=== PATIENT | female | born 1965 | race Caucasian/White ===

== ENCOUNTER → 2020-09-03 13:10 | Outpatient (CLI) | payer OTHER, SELFPAY ==
--- NOTE | ~2020-09-03 | MM_ITS ---
EXAMINATION: MM screening [facility] BI w beatriz HISTORY: Screening mammogram TECHNIQUE: Craniocaudal and mediolateral oblique 3-D tomosynthesis images were obtained and synthetic 2-D images were generated. CAD analysis was submitted and interpreted. COMPARISON: 09/08/2017, 01/27/2016, 09/23/2014 BREAST PARENCHYMAL COMPOSITION: The breasts are extremely dense, which lowers the sensitivity of mamm ography. FINDINGS: There is no evidence of suspicious mass, calcification, or architectural distortion to sugg est malignancy in either breast. There has been no suspicious interval change. IMPRESSION: 1. No mammographic evidence of malignancy. 2. Recommend routine screening mammography in one year. BI-RADS Category 1: Negative Reviewed, dictated and finalized at location A.
== END ==
PROVIDERS: PCP Internal Medicine
DX: Z12.31 Encounter for screening mammogram for malignant neoplasm of breast (principal)
CPT/HCPCS: 77063; 77067

== ENCOUNTER 2020-09-24 13:48 | Outpatient (CLI) | payer OTHER, SELFPAY ==
--- NOTE | ~2020-09-24 | DEXA_ITS ---
Bone Density Report Name: Saranya Chicas Age: 55 Sex: Female Ethnicity: White Date of : 1965 Indication: osteopenia; parental hip fracture; prior fracture; postmenopausal Referring Provider: Melvin Batres Study: Bone densitometry was performed. Exam Date: September 24, 2020 Accession number: [id number] Bone Density: Region BMD T-score Z-score Classification AP Spine (L1-L4) 0.924 -1.1 0.0 Osteopenia Femoral Neck (Left) 0.587 -2.4 -1.3 Osteopenia Total Hip (Left) 0.771 -1.4 -0.7 Osteopenia Total Hip Bilateral Avg 0.792 -1.3 -0.5 Osteopenia Femoral Neck (Right) 0.669 -1.6 -0.5 Osteopenia Total Hip (Right) 0.811 -1.1 -0.3 Osteopenia World Health Organization criteria for BMD impression classify patients as: Normal (T-score at or above -1.0), Osteopenia (T-score between -1.0 and -2.5), or Osteoporosis (T-score at or below -2.5). 10-year Fracture Risk: FRAX not reported because: Prior hip or vertebral fracture Previous Exams: Region Exam Age BMD T-score BMD Change BMD Change Date g/cm2 vs Baseline vs Previous AP Spine(L1-L4) 09/24/2020 55 0.924 -1.1 0.023(2.5%)* 0.023(2.5%)* 03/21/2018 52 0.902 -1.3 Total Hip(Left) 09/24/2020 55 0.771 -1.4 0.019(2.6%) 0.019(2.6%) 03/21/2018 52 0.751 -1.6 Total Hip(Right) 09/24/2020 55 0.811 -1.1 0.001(0.1%) 0.001(0.1%) 03/21/2018 52 0.810 -1.1 *Denotes significance at 95% confidence level, LSC for AP Spine = 0.022 g/cm2, LSC for Total Hip = 0.027 g/cm2 Clinical Information Provided by Patient: Have had a previous hip or vertebral fracture Has had a low trauma fracture Parent has had a hip fracture Has used the following medications: Vitamin D, BIDENCAL HORMONES Patient maximum height was 67 Menopause Age: 50 No regular weight bearing exercise Onset of menses at age 13 Number of children 3 Impression: The patient has low bone mass, based on the Left Femoral Neck T-score. The patient has risk factors, including: parental hip fracture, previous fracture. No significant bone loss was observed. Discussion: INCREASED RISK OF FRACTURE DUE TO HISTORY OF FRACTURE. The patient's previous fracture puts the patient at high risk of a future fracture. In untreated patients, the risk of osteoporotic fracture increases approximately two-fold for each 1.0 SD decrease in T-score. Low bone density is not the only risk factor for fracture; also consider factors such as patient's age, frailty or poor
== END 2020-09-24 13:49 | disposition home or self-care (01) ==
LOC: ANHIMG 13:50
PROVIDERS: PCP Internal Medicine; Visit Provider Internal Medicine
DX: M85.88 Other specified disorders of bone density and structure, other site (principal); M85.852 Other specified disorders of bone density and structure, left thigh; M85.851 Other specified disorders of bone density and structure, right thigh
CPT/HCPCS: 77080

== ENCOUNTER → 2022-03-03 14:15 | Outpatient (CLI) | payer OTHER, SELFPAY ==
--- NOTE | ~2022-03-03 | MM_ITS ---
EXAMINATION: MM screening [facility] BI w beatriz HISTORY: Screening TECHNIQUE: Craniocaudal and mediolateral oblique 3-D tomosynthesis images were obtained and synthetic 2-D images were generated. CAD analysis was submitted and interpreted. COMPARISON: Comparison to multiple prior studies sequentially, with oldest reviewed study dated 02/2012. BREAST PARENCHYMAL COMPOSITION: The breasts are extremely dense, which lowers the sensitivity of mamm ography FINDINGS: There is no evidence of suspicious mass, calcification, or architectural distortion to sugg est malignancy in either breast. There has been no suspicious interval change. IMPRESSION: 1. No mammographic evidence of malignancy. 2. Recommend routine screening mammography in one year. BI-RADS Category 1: Negative Reviewed, dictated and finalized at location A. ORK DEVELOPER
== END ==
PROVIDERS: PCP Internal Medicine; Visit Provider Obstetrics & Gynecology
DX: Z12.31 Encounter for screening mammogram for malignant neoplasm of breast (principal)
CPT/HCPCS: 77063; 77067

== ENCOUNTER 2022-11-11 08:30 | Outpatient (CLI) | payer SELFPAY ==
[2022-11-11 09:04] LABS: Kit Draw Collected
== END 2022-11-11 08:31 | disposition home or self-care (01) ==
PROVIDERS: PCP Internal Medicine
DX: K58.2 Mixed irritable bowel syndrome (principal); A04.9 Bacterial intestinal infection, unspecified; R53.83 Other fatigue
CPT/HCPCS: 36415

== ENCOUNTER → 2023-03-23 14:42 | Outpatient (CLI) | payer OTHER, SELFPAY ==
--- NOTE | ~2023-03-23 | MM_ITS ---
EXAMINATION: MM screening [facility] BI w beatriz HISTORY: Screening TECHNIQUE: Craniocaudal and mediolateral oblique 3-D tomosynthesis images were obtained and synthetic 2-D images were generated. CAD analysis was submitted and interpreted. COMPARISON: Comparison to multiple prior studies sequentially, with oldest reviewed study dated 06/14. BREAST PARENCHYMAL COMPOSITION: Dense: The breasts are extremely dense, which lowers the sensitivity of mammography. FINDINGS: There is focal asymmetry with possible architectural distortion in the upper central aspect of the right breast. The left breast is stable without evidence for malignancy. IMPRESSION: 1. Focal asymmetry in the upper central aspect of the right breast. 2. Additional mammographic views and possible breast ultrasound are recommended. BI-RADS Category 0: Incomplete: Needs additional imaging evaluation. Reviewed, dictated and finalized at location A. RPRISE ACCOUNT EXECUTIVE IMPRESSION: 1. Focal asymmetry in the upper central aspect of the right breast. 2. Additional mammographic views and possible breast ultrasound are recommended . BI-RADS Category 0: Incomplete: Needs additional imaging evaluation.
== END ==
PROVIDERS: PCP Obstetrics & Gynecology; Visit Provider Obstetrics & Gynecology
DX: Z12.31 Encounter for screening mammogram for malignant neoplasm of breast (principal); R92.8 Other abnormal and inconclusive findings on diagnostic imaging of breast
CPT/HCPCS: 77063; 77067

== ENCOUNTER → 2023-04-19 08:44 | Outpatient (CLI) | payer OTHER, SELFPAY ==
--- NOTE | ~2023-04-19 | MMUS_ITS ---
EXAMINATION: MM diagnostic [facility] RT w beatriz, US breast RT limited HISTORY: Follow-up right breast asymmetry TECHNIQUE: Additional 3-D tomosynthesis images of the right breast were performed and synthetic 2-D i mages were generated. CAD analysis was submitted and interpreted. High resolution Limited right breas t ultrasound was performed. COMPARISON: Comparison to multiple prior studies sequentially, with oldest reviewed study dated 05/2014. BREAST PARENCHYMAL COMPOSITION: Dense: The breasts are extremely dense, which lowers the sensitivity of mammography. FINDINGS: MAMMOGRAPHIC FINDINGS: There is subtle architectural distortion in the upper outer quadrant of the right breast, middle thir d. There is an irregular shaped spiculated mass in the upper outer quadrant of the right breast near the axilla posteriorly. ULTRASOUND: Limited right breast ultrasound: At 11:00, 5 cm from the nipple there is an irregular shaped antipara llel hypoechoic mass with mixed posterior attenuation measuring 4 x 3 x 3 mm without internal vascula rity. This corresponds to the area of architectural distortion by mammography. In the axilla there is an irregular shaped hypoechoic mass with mixed posterior attenuation measuring 12 x 7 x 9 mm. There is marginal vascularity. IMPRESSION: 1. Abnormal right breast masses located at 11:00, 5 cm from the nipple and in the right axilla. 2. Ultrasound-guided right breast biopsies recommended. BI-RADS category 5: Highly suspicious abnormality. Reviewed, dictated and finalized at location A. ESS EQUIPMENT OPERATOR IMPRESSION: 1. Abnormal right breast masses located at 11:00, 5 cm from the nipple and in t he right axilla. 2. Ultrasound-guided right breast biopsies recommended. BI-RADS category 5: Highly suspicious abnormality.
== END ==
PROVIDERS: PCP Obstetrics & Gynecology; Visit Provider Obstetrics & Gynecology
DX: N64.89 Other specified disorders of breast (principal); R92.8 Other abnormal and inconclusive findings on diagnostic imaging of breast
CPT/HCPCS: 76642; 77061; 77065; G0279

== ENCOUNTER 2024-08-12 08:43 | Day surgery (SDC) | payer OTHER, SELFPAY ==
[2024-08-12 09:30] VITALS: BMI 18.7
[2024-08-12 09:34] VITALS: BP 116/76; PULSE 78; RESP 16; TEMP 36.7; O2SAT 100
--- NOTE | 2024-08-12 09:41 | WPDANESEPP ---
Anes - Eval Pre Procedure Procedure: Operation Date: 08/12/24 10:30 Proposed Procedures p Screening Colonoscopy - Barney Jarrell DO s Internal Hemorrhoid Banding - Barney Jarrell DO Date/Time: 08/12/24 09:41 Preop Diagnosis: COLON SCREENING Pre Op Diagnosis: Neoplasm Screening, Grade 3 Internal Hemorrhoids Patient Data Age: 59 Gender: F Height: 1.68 m Weight: 52.6 kg Last Vital Signs Temp 98.1 F 08/12/24 09:34 Pulse 78 08/12/24 09:34 Resp 16 08/12/24 09:34 BP 116/76 08/12/24 09:34 Pulse Ox 100 08/12/24 09:34 O2 Del Method Room Air 08/12/24 09:34 Allergies Allergy/AdvReac Type Severity Reaction Status Date / Time terbinafine Allergy Mild Hives Verified 07/31/24 08:14 Home Medications ?Medication ?Instructions ?Recorded ?Confirmed ?Type ibuprofen 200 mg tablet 200 mg PO Q6H PRN pain 08/01/19 08/12/24 History omega 3-lvu-gij-fish oil 60 mg-90 1 cap PO DAILY 08/01/19 08/12/24 History mg-500 mg capsule anastrozole 1 mg tablet 1 mg PO DIRECTED 12/13/23 08/12/24 History biotin 1 mg capsule 1 mg PO DAILY 12/13/23 08/12/24 History calcium carbonate 500 mg PO DAILY 12/13/23 08/12/24 History cholecalciferol (vitamin D3) 75 75 mcg PO DAILY 05/31/24 08/12/24 History mcg (3,000 unit) tablet curcumin-phosphatidylcholine 500 400 mg PO DAILY 05/31/24 08/12/24 History mg capsule cyanocobalamin (vitamin B-12) 1,000 mcg PO DAILY 05/31/24 08/12/24 History 1,000 mcg capsule magnesium 200 mg tablet 200 mg PO DAILY 05/31/24 08/12/24 History Patient hx anesthesia problems: none Family hx anesthesia problems: none Results Review: All pre-operative results and documents have been reviewed as part of the pre-operative evaluation. 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 Hyperlipidemia Surgical History Surgical History (Updated 05/31/24 @ 10:19 by Prema Ngo MA) H/O mastectomy 2023 Hx of section 1989 H/O breast biopsy 05/24/2023 - pathology - right sided breast cancer H/O LEEP 2011 Family History Family History (Updated 05/31/24 @ 10:22 by Prema Ngo MA) Mother Family history of elevated blood lipids Family history of hypercholesterolemia Hypertension Heart disease Depression Sibling Family history of elevated blood lipids Family history of alcoholism Family history of hypercholesterolemia Hypertension Depression Father Hypertension Family history of arthritis Family history of malignant neoplasm Heart disease Sibling Osteoarthritis Grandparent Heart disease Family history of alcoholism Depression Social History Social History (Updated 05/31/24 @ 10:23 by Prema Ngo MA) Smoking status: Never smoker Second hand tobacco smoke exposure: No Alcohol intake: former Drinks per week: 1 Alcohol use details: very rarely, maybe one per month Substance use: never Substance use type: does not use Do You Feel Safe in your Home?: Yes Lack of Transportation: No Lack of Food: Never True Current Housing: I Have Housing Concerned About Future Housing: No Difficulty Paying Gas/Electric Bills: No Difficulty Paying for Meds: No Currently Unemployed: No Education: Master's Degree or Higher Difficulty w/ Childcare or Family Care: No Living arrangements: with family Occupation/Education: occupation Gender identity (if verbalized by the patient): Female Sexual Orientation (if Verbalized by the Patient): Straight or Heterosexual Agree to blood products: Yes Exam Day of Procedure 08/12/24 09:41 Heart: regular rate and rhythm Lungs: clear to auscultation Airway: Mallampati scale class 1 Neurological: alert and oriented
--- NOTE | 2024-08-12 09:42 | WPDANESEPP ---
Anes - Eval Pre Procedure Procedure: Operation Date: 08/12/24 10:30 Proposed Procedures p Screening Colonoscopy - Barney Jarrell DO s Internal Hemorrhoid Banding - Barney Jarrell DO Date/Time: 08/12/24 09:42 Pre Op Diagnosis: Neoplasm Screening, Grade 3 Internal Hemorrhoids Patient Data Age: 59 Gender: F Height: 1.68 m Weight: 52.6 kg Last Vital Signs Temp 98.1 F 08/12/24 09:34 Pulse 78 08/12/24 09:34 Resp 16 08/12/24 09:34 BP 116/76 08/12/24 09:34 Pulse Ox 100 08/12/24 09:34 O2 Del Method Room Air 08/12/24 09:34 Allergies Allergy/AdvReac Type Severity Reaction Status Date / Time terbinafine Allergy Mild Hives Verified 07/31/24 08:14 Home Medications ?Medication ?Instructions ?Recorded ?Confirmed ?Type ibuprofen 200 mg tablet 200 mg PO Q6H PRN pain 08/01/19 08/12/24 History omega 9-nub-zhk-fish oil 60 mg-90 1 cap PO DAILY 08/01/19 08/12/24 History mg-500 mg capsule anastrozole 1 mg tablet 1 mg PO DIRECTED 12/13/23 08/12/24 History biotin 1 mg capsule 1 mg PO DAILY 12/13/23 08/12/24 History calcium carbonate 500 mg PO DAILY 12/13/23 08/12/24 History cholecalciferol (vitamin D3) 75 75 mcg PO DAILY 05/31/24 08/12/24 History mcg (3,000 unit) tablet curcumin-phosphatidylcholine 500 400 mg PO DAILY 05/31/24 08/12/24 History mg capsule cyanocobalamin (vitamin B-12) 1,000 mcg PO DAILY 05/31/24 08/12/24 History 1,000 mcg capsule magnesium 200 mg tablet 200 mg PO DAILY 05/31/24 08/12/24 History Patient hx anesthesia problems: none Family hx anesthesia problems: none Results Review: All pre-operative results and documents have been reviewed as part of the pre-operative evaluation. 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 Hyperlipidemia Surgical History Surgical History (Updated 05/31/24 @ 10:19 by Prema Ngo MA) H/O mastectomy 2023 Hx of section 1989 H/O breast biopsy 05/24/2023 - pathology - right sided breast cancer H/O LEEP 2011 Family History Family History (Updated 05/31/24 @ 10:22 by Prema Ngo MA) Mother Family history of elevated blood lipids Family history of hypercholesterolemia Hypertension Heart disease Depression Sibling Family history of elevated blood lipids Family history of alcoholism Family history of hypercholesterolemia Hypertension Depression Father Hypertension Family history of arthritis Family history of malignant neoplasm Heart disease Sibling Osteoarthritis Grandparent Heart disease Family history of alcoholism Depression Social History Social History (Updated 05/31/24 @ 10:23 by Prema Ngo MA) Smoking status: Never smoker Second hand tobacco smoke exposure: No Alcohol intake: former Drinks per week: 1 Alcohol use details: very rarely, maybe one per month Substance use: never Substance use type: does not use Do You Feel Safe in your Home?: Yes Lack of Transportation: No Lack of Food: Never True Current Housing: I Have Housing Concerned About Future Housing: No Difficulty Paying Gas/Electric Bills: No Difficulty Paying for Meds: No Currently Unemployed: No Education: Master's Degree or Higher Difficulty w/ Childcare or Family Care: No Living arrangements: with family Occupation/Education: occupation Gender identity (if verbalized by the patient): Female Sexual Orientation (if Verbalized by the Patient): Straight or Heterosexual Agree to blood products: Yes Comments asa 2 Exam Day of Procedure 08/12/24 09:42
[2024-08-12] MEDS: LACTATED RINGERS 1,000 ML 150 ML IV CONT (10:01)
--- NOTE | 2024-08-12 10:32 | PM.IMHP ---
H&P: HPI History of Present Illness Date/Time: 08/12/24 10:32 Chief Complaint: bleeding internal hemorrhoids, screening for colorectal cancer Narrative: 59 yo woman presents for colonoscopy and internal hemorrhoid rubber banding. She denies any changes since last seen in office. She has intermittent rectal bleeding after BMs. Denies 1st degree fam member hx colon cancer but did have an aunt that had colon cancer. Her last colonoscopy was 10 years ago. Review of Systems Review of Systems: All systems reviewed & are unremarkable except as noted in HPI and below Constitutional: Constitutional: Denies chills, Denies fever(s), Denies headache(s) and Denies weight loss Eyes: Eyes: Denies change in vision ENT: Denies dizziness, Denies headache(s), Denies neck mass and Denies throat swelling Cardiovascular: Cardiovascular: Denies chest pain, Denies lightheadedness and Denies dyspnea Respiratory: Respiratory: Denies cough, Denies dyspnea and Denies wheezing Gastrointestinal: Gastrointestinal: Denies abdominal pain, Denies change in bowel habits, Denies nausea and Denies vomiting Genitourinary: Genitourinary: Denies hematuria and Denies dysuria Musculoskeletal: Musculoskeletal: Reports as per HPI Integumentary/Breasts: Skin/Breast: Reports as per HPI Neurologic: Denies dizziness and Denies headache(s) Allergic/Immunologic: Allergic/Immunologic: Denies throat swelling and Denies wheezing PMF Past Medical History Medical History (Updated 05/31/24 @ 10:42 by Sophy Kemp) Breast cancer Headache Anxiety Cancer treatment started radiation breast cancer September 11 to october 04 Invasive lobular carcinoma of right breast in female 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 Hyperlipidemia Surgical History Surgical History (Updated 05/31/24 @ 10:19 by Prema Ngo MA) H/O mastectomy 2023 Hx of section 1989 H/O breast biopsy 05/24/2023 - pathology - right sided breast cancer H/O LEEP 2011 Family History Family History (Updated 05/31/24 @ 10:22 by Prema Ngo MA) Mother Family history of elevated blood lipids Family history of hypercholesterolemia Hypertension Heart disease Depression Sibling Family history of elevated blood lipids Family history of alcoholism Family history of hypercholesterolemia Hypertension Depression Father Hypertension Family history of arthritis Family history of malignant neoplasm Heart disease Sibling Osteoarthritis Grandparent Heart disease Family history of alcoholism Depression Social History Social History (Updated 05/31/24 @ 10:23 by Prema Ngo MA) Smoking status: Never smoker Second hand tobacco smoke exposure: No Alcohol intake: former Drinks per week: 1 Alcohol use details: very rarely, maybe one per month Substance use: never Substance use type: does not use Do You Feel Safe in your Home?: Yes Lack of Transportation: No Lack of Food: Never True Current Housing: I Have Housing Concerned About Future Housing: No Difficulty Paying Gas/Electric Bills: No Difficulty Paying for Meds: No Currently Unemployed: No Education: Master's Degree or Higher Difficulty w/ Childcare or Family Care: No Living arrangements: with family Occupation/Education: occupation Gender identity (if verbalized by the patient): Female Sexual Orientation (if Verbalized by the Patient): Straight or Heterosexual Agree to blood products: Yes Meds Home Medications and Allergies Home Medications ?Medication ?Instructions ?Recorded ?Confirmed ?Type ibuprofen 200 mg tablet 200 mg PO Q6H PRN pain 08/01/19 08/12/24 History omega 0-rgi-fpw-fish oil 60 mg-90 1 cap PO DAILY 08/01/19 08/12/24 History mg-500 mg capsule anastrozole 1 mg tablet 1 mg PO DIRECTED 12/13/23 08/12/24 History biotin 1 mg capsule 1 mg PO DAILY 12/13/23 08/12/24 History calcium carbonate 500 mg PO DAILY 12/13/23 08/12/24 History cholecalciferol (vitamin D3) 75 75 mcg PO DAILY 05/31/24 08/12/24 History mcg (3,000 unit) tablet curcumin-phosphatidylcholine 500 400 mg PO DAILY 05/31/24 08/12/24 History mg capsule cyanocobalamin (vitamin B-12) 1,000 mcg PO DAILY 05/31/24 08/12/24 History 1,000 mcg capsule magnesium 200 mg tablet 200 mg PO DAILY 05/31/24 08/12/24 History Allergies Allergy/AdvReac Type Severity Reaction Status Date / Time terbinafine Allergy Mild Hives Verified 07/31/24 08:14 Vital Signs Vital Signs - 24 hr 08/12/24 09:34 Temperature 98.1 F Pulse Rate 78 Respiratory Rate 16 Blood Pressure 116/76 Pulse Oximetry 100 Oxygen Delivery Room Air Exam Const: General: no acute distress and alert Orientation/consciousness: patient oriented x3 HENMT: Head: normocephalic and atraumatic Ears: hearing grossly normal bilaterally Face/Nose/Sinus: Normal nares present Mouth: Yes Normal oral and palatal mucosa present Eyes: Periorbital: periorbital findings normal Sclera: sclerae normal EOM: EOMs intact bilaterally Neck: Neck: normal visual inspection, no lymphadenopathy and trachea midline Chest: Chest palpation & inspection: normal inspection of the chest Resp: Effort & Inspection: normal respiratory effort Auscultation: clear to auscultation bilaterally Cardio: Jugular venous distension: no JVD Rate: regular rate Rhythm: regular rhythm Heart sounds: S1 normal heart sound present and S2 normal heart sound present Peripheral pulses: Peripheral pulses 2+ throughout GI: Inspection: normal to inspection GI Palp: Yes Soft to palpation, No Tenderness to palpation present (GI), No Guarding due to palpation present (GI) and No Rebound tenderness present Percussion: Yes normal to percussion Auscultation: normal bowel sounds : General: Yes no CVA tenderness Back/Spine/Pelvis: Back: no CVA tenderness Neuro: General: patient oriented x3, no focal motor deficits and CN's II-XI intact bilaterally Cognition (Neuro): normal cognition Speech: normal speech Motor exam (neuro): 5/5 motor strength present throughout Extrem: General: capillary refill normal and no clubbing, cyanosis or edema Assessment and Plan Assessment and plan (1) Grade III internal hemorrhoids: Code(s): K64.2 - Third degree hemorrhoids Status: Acute Assessment and Plan: I have recommended colonoscopy and interna hemorrhoid rubber banding. I have discussed the procedure, risks, benefits, and alternatives. Questions were answered. Patient is agreeable to proceed. (2) Screening for rectal cancer: Code(s): Z12.12 - Encounter for screening for malignant neoplasm of rectum Status: Acute
[2024-08-12 11:12] VITALS: BP 106/64; PULSE 79; RESP 15; O2SAT 100
--- NOTE | 2024-08-12 11:15 | W.PM.PROC2 ---
Procedure Note - Detailed Date of Procedure 08/12/24 Pre-op Diagnosis Neoplasm Screening, Grade 3 Internal Hemorrhoids Post-op Diagnosis Same Procedure Performed Internal hemorrhoid rubber banding x2 Surgeon Barney Jarrell, DO Anesthesia MAC Indications Grade 3 bleeding internal hemorrhoids Findings At the conclusion of the colonoscopy, then inserted a [place] anoscope and carefully inspected the anorectal canal. Prolapsing internal hemorrhoids were identified in the right posterior and left anterior positions. Rubber band ligation performed in each of these locations. No other abnormalities were noted. Description of Procedure Procedure as well as risks, benefits, and alternatives were discussed with the patient. Written consent was obtained and placed in chart prior to procedure. Patient was placed in left lateral decubitus position on the hospital stretcher. After completing the colonoscopy, the colonoscope was removed. A [place] anoscope was then inserted and the anal rectal canal was carefully inspected. Prolapsing internal hemorrhoids in the right posterior and left anterior locations were identified and ligated using the rubber banding device. No other significant abnormalities were noted. The rubber bands appeared in proper position. The anoscope was then removed, the patient was then awakened from anesthesia, and transferred to recovery. Estimated Blood Loss 0 Complications No immediate complications Condition Stable Disposition Same day [facility] Billing Surgery - Charge Forward: Surgery Billing
--- NOTE | 2024-08-12 11:15 | WPDANESPN ---
Anes - Prog Note Post-Op Date/Time: 08/12/24 11:15 Vital Signs: Last Vital Signs Temp 98.1 F 08/12/24 09:34 Pulse 78 08/12/24 09:34 Resp 16 08/12/24 09:34 BP 116/76 08/12/24 09:34 Pulse Ox 100 08/12/24 09:34 O2 Del Method Room Air 08/12/24 09:34 Pain Score (VAS): no I/O: Intake & Output 08/11/24 08/12/24 08/12/24 23:59 07:59 15:59 Intake Total 300 Balance 300 Patient Feedback: Patient satisfied with anesthetic care.
[2024-08-12 11:22] VITALS: BP 110/63; PULSE 72; RESP 16; O2SAT 100
[2024-08-12 11:32] VITALS: BP 120/66; PULSE 72; RESP 16; O2SAT 100
== END 2024-08-12 11:45 | disposition home or self-care (01) ==
PROVIDERS: PCP Internal Medicine; Visit Provider Surgery
PROC: 0DJD8ZZ Inspection of Lower Intestinal Tract, Via Natural or Artificial Opening Endoscopic (ICD-10-PCS; CPT 45378; principal; 2024-08-12 10:30)
PROC: (CPT 45378; 2024-08-12 10:30)
DX: Z12.11 Encounter for screening for malignant neoplasm of colon (principal); K64.2 Third degree hemorrhoids
CPT/HCPCS: 45378; 46221